=== PATIENT | male | born 1995 | race Caucasian/White ===

== ENCOUNTER 2018-09-24 10:41 | Emergency (ER) | payer BC ==
[~2018-09-24] VITALS: Ht 177.8 cm; Wt 78.0 kg
[2018-09-24 10:53] VITALS: BP 150/87
[2018-09-24 12:05] VITALS: BP 132/80
== END 2018-09-24 12:05 | disposition home or self-care (01) ==
LOC: MED 10:41
DX: S61.411D Laceration without foreign body of right hand, subsequent encounter (principal); Z88.1 Allergy status to other antibiotic agents; X58.XXXD Exposure to other specified factors, subsequent encounter
CPT/HCPCS: 99283

== ENCOUNTER 2018-10-01 12:51 | Emergency (ER) | payer BC ==
[~2018-10-01] VITALS: Ht 177.8 cm; Wt 78.5 kg
[2018-10-01 13:25] VITALS: BP 143/75
[2018-10-01 14:15] VITALS: BP 137/85
== END 2018-10-01 14:15 | disposition home or self-care (01) ==
LOC: MED 12:51
DX: S61.411D Laceration without foreign body of right hand, subsequent encounter (principal); X58.XXXD Exposure to other specified factors, subsequent encounter
CPT/HCPCS: 99283

== ENCOUNTER 2018-10-13 08:46 | Emergency (ER) | payer BC ==
[~2018-10-13] VITALS: Ht 177.8 cm; Wt 79.4 kg
--- NOTE | 2018-10-13 08:50 | NUR ---
PT AMBULATED TO ER BED 06
[2018-10-13 08:53] VITALS: BP 143/84
--- NOTE | 2018-10-13 09:01 | NUR ---
SEEN IN OUR ER 09/12/2018 FOR HAND INJURY, LACERATION REPAIR REQUESTING SUTURE REMOVAL- STATES HE HAS HAD RIGHT UPPER THIGH PAIN X 2 DAYS. DENIES ANY OTHER SYMPTOMS AT THIS TIME. VSS.
[2018-10-13] MEDS ORDERED: BACITRACIN OINT 500 UNITS/GM PKT TP ONE (09:10)
[2018-10-13 09:33] VITALS: BP 143/84
== END 2018-10-13 09:32 | disposition home or self-care (01) ==
LOC: MED 08:46
DX: S61.411D Laceration without foreign body of right hand, subsequent encounter (principal); L03.113 Cellulitis of right upper limb; Z88.1 Allergy status to other antibiotic agents; X58.XXXD Exposure to other specified factors, subsequent encounter
CPT/HCPCS: 99283

== ENCOUNTER 2018-10-17 11:45 | Emergency (ER) | payer BC ==
[~2018-10-17] VITALS: Ht 177.8 cm; Wt 79.8 kg
[2018-10-17 11:50] VITALS: BP 134/67
--- NOTE | 2018-10-17 14:11 | NUR ---
PT BIB SELF TO ER FOR RIGHT LEG PAIN X2 DAYS. PT REPORTS THAT HE "STOOD UP FROM A HAMMOCK AND HURT HIS LEG, AND IT WAS TIGHT IN UPPER RIGHT LEG." PT REPORTS SHARP PAIN AT 6/10 IN R LEG THAT RADIATS UP RIGHT GROIN. LARGE PURPLE/REDDISH BRUISE IN R UPPER THIGH/GROIN REGION. PT HAS FULL RANGE OF MOTION, DENIES TINGLING IN LOWER EXTRIMITY. PT VISIBLY LIMPING. ER MD NOTIFIED OF PT CONDITION. SAFETY PRECAUTIONS IN PLACE. WILL CONTINUE TO MONITOR.
--- NOTE | 2018-10-17 14:50 | NUR ---
Patient left without discharge paperwork. Patient discharged with v/s stable. Written and verbal after care instructions given and explained. Patient verbalized understanding. Ambulatory with steady gait. All questions addressed prior to discharge. Advised to follow up with PMD.
== END 2018-10-17 14:50 | disposition home or self-care (01) ==
LOC: MED 11:45
DX: S76.911A Strain of unspecified muscles, fascia and tendons at thigh level, right thigh, initial encounter (principal); S39.011A Strain of muscle, fascia and tendon of abdomen, initial encounter; Z88.1 Allergy status to other antibiotic agents; X58.XXXA Exposure to other specified factors, initial encounter; Y93.89 Activity, other specified; Y92.89 Other specified places as the place of occurrence of the external cause; Y99.8 Other external cause status
CPT/HCPCS: 99281

== ENCOUNTER 2019-07-23 23:06 | Emergency (ER) | payer BC ==
[~2019-07-23] VITALS: Ht 177.8 cm; Wt 81.6 kg
[2019-07-23 23:28] VITALS: BP 143/75
[2019-07-24 00:15] VITALS: BP 143/75
== END 2019-07-24 00:15 | disposition left against medical advice (07) ==
LOC: MED 23:06
DX: M79.672 Pain in left foot (principal); Z53.21 Procedure and treatment not carried out due to patient leaving prior to being seen by health care provider

== ENCOUNTER 2023-03-22 10:32 | Emergency (ER) | payer BC ==
[~2023-03-22] VITALS: Ht 177.8 cm; Wt 99.8 kg
[2023-03-22 11:06] VITALS: BP 144/91
[2023-03-22] MEDS ORDERED: IBUPROFEN 600 MG TAB PO ONE (11:30)
[2023-03-22] MEDS ORDERED: LIDOCAINE MPF 1% 10 MG/ML VIAL INJ ONE (11:30)
--- NOTE | 2023-03-22 11:36 | NUR ---
R ANTERIOR LEG SUPERIOR TO KNEE
[2023-03-22] MEDS ORDERED: BACI-416 TP (12:32)
[2023-03-22] MEDS ORDERED: IBUP-2213 PO (12:32)
--- NOTE | 2023-03-22 13:00 | NUR ---
dc w/o paperwork, bacitracin and motrin sent to [facility] in [facility]
== END 2023-03-22 13:00 | disposition home or self-care (01) ==
LOC: MED 10:32
DX: S71.111A Laceration without foreign body, right thigh, initial encounter (principal); R03.0 Elevated blood-pressure reading, without diagnosis of hypertension; W18.30XA Fall on same level, unspecified, initial encounter; Y93.89 Activity, other specified; Y92.89 Other specified places as the place of occurrence of the external cause; Y99.8 Other external cause status
CPT/HCPCS: 12001; 73552; 99283; J2001